=== PATIENT | female | born 1970 | race Asian ===

== ENCOUNTER 2025-05-16 11:52 | Emergency (ER) | payer MEDICAID ==
[~2025-05-16] VITALS: Ht 162.6 cm; Wt 55.5 kg
[2025-05-16 11:56] VITALS: TEMP 98
[2025-05-16] MEDS ORDERED: LOSA-382 PO (11:57)
[2025-05-16 14:05] VITALS: BP 168/104; PULSE 72; RESP 18; O2SAT 100
== END 2025-05-16 14:31 | disposition left against medical advice (07) ==
LOC: EMS 11:52
DX: R51.9 Headache, unspecified (principal); Z53.21 Procedure and treatment not carried out due to patient leaving prior to being seen by health care provider
CPT/HCPCS: 93005; 99281; Z7502